=== PATIENT | male | born 1980 | race Caucasian/White ===

== ENCOUNTER 2020-09-12 17:08 | Emergency (ER) | payer OTHER ==
[~2020-09-12] VITALS: Ht 177 cm; Wt 117.0 kg
--- NOTE | 2020-09-12 17:21 | ED Psychosocial ---
General Chief Complaint: Psych/Social Disorder Stated Complaint: ANXIETY Source: patient Exam Limitations: no limitations History of Present Illness Date Seen by Provider: Sep 12, 2020 Time Seen by Provider: 17:19 Initial Comments To ER with reports of anxiety. He is from [place] works for the [employer]. He has been having a lot of stress secondary to his job. Today he had a syncopal episode and was caught by his coworker. He feels okay now but has a headache. He feels very anxious but he takes Zoloft 100 mg daily. He had a previous episode of near syncope with a very stressful situation. Timing/Duration: constant Severity: moderate Associated Symptoms: anxiety Allergies and Home Medications Allergies Coded Allergies: No Known Drug Allergies (Unverified , 09/12/20) Patient Home Medication List Home Medication List Reviewed: Yes Review of Systems Constitutional: see HPI EENTM: see HPI Respiratory: no symptoms reported Cardiovascular: no symptoms reported Genitourinary: no symptoms reported Musculoskeletal: no symptoms reported Skin: no symptoms reported Psychiatric/Neurological: Anxiety Past [id number]-Zrallg Hx Patient Social History Tobacco Use?: No Substance use?: No Alcohol Use?: No Pt feels they are or have been: No Immunizations Up To Date First/Initial COVID19 Vaccinat: 09/04/20 COVID19 Vaccine 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 Physical Exam Vital Signs - First Documented 09/12/20 17:11 Temp 36.4 Pulse 101 Resp 16 B/P (MAP) 155/86 (109) Pulse Ox 97 O2 Delivery Room Air Capillary Refill : Height, Weight, BMI Height: '" Weight: lbs. oz. kg; BMI Method: General Appearance: WD/WN, no apparent distress HEENT: PERRL/EOMI, normal ENT inspection Respiratory: no respiratory distress, no accessory muscle use Cardiovascular: no murmur, tachycardia Gastrointestinal: normal bowel sounds, non tender, soft Extremities: normal range of motion, non-tender Neurologic/Psychiatric: alert, normal mood/affect, oriented x 3 Appearance/Memory: appropriate appearance, appropriate insight Thoughts/Hallucinations: normal thought pattern, no apparent hallucination Skin: normal color, warm/dry Progress/Results/Core Measures Results/Orders Lab Results Laboratory Tests Test 09/12/20 17:15 Range/Units White Blood Count 9.4 4.3-11.0 10^3/uL Red Blood Count 4.73 4.30-5.52 10^6/uL Hemoglobin 14.5 13.3-17.7 g/dL Hematocrit 43 40-54 % Mean Corpuscular Volume 90 80-99 fL Mean Corpuscular Hemoglobin 31 25-34 pg Mean Corpuscular Hemoglobin Concent 34 32-36 g/dL Red Cell Distribution Width 11.7 10.0-14.5 % Platelet Count 262 130-400 10^3/uL Mean Platelet Volume 10.0 9.0-12.2 fL Immature Granulocyte % (Auto) 1 % Neutrophils (%) (Auto) 76 H 42-75 % Lymphocytes (%) (Auto) 16 12-44 % Monocytes (%) (Auto) 8 0-12 % Eosinophils (%) (Auto) 0 0-10 % Basophils (%) (Auto) 0 0-10 % Neutrophils # (Auto) 7.1 1.8-7.8 10^3/uL Lymphocytes # (Auto) 1.5 1.0-4.0 10^3/uL Monocytes # (Auto) 0.7 0.0-1.0 10^3/uL Eosinophils # (Auto) 0.0 0.0-0.3 10^3/uL Basophils # (Auto) 0.0 0.0-0.1 10^3/uL Immature Granulocyte # (Auto) 0.1 0.0-0.1 10^3/uL Sodium Level 142 135-145 MMOL/L Potassium Level 3.7 3.6-5.0 MMOL/L Chloride Level 103 98-107 MMOL/L Carbon Dioxide Level 23 21-32 MMOL/L Anion Gap 16 H 5-14 MMOL/L Blood Urea Nitrogen 11 7-18 MG/DL Creatinine 1.06 0.60-1.30 MG/DL Estimat Glomerular Filtration Rate 77 BUN/Creatinine Ratio 10 Glucose Level 156 H 70-105 MG/DL Calcium Level 9.4 8.5-10.1 MG/DL Corrected Calcium 9.2 8.5-10.1 MG/DL Total Bilirubin 0.6 0.1-1.0 MG/DL Aspartate Amino Transf (AST/SGOT) 19 5-34 U/L Alanine Aminotransferase (ALT/SGPT) 23 0-55 U/L Alkaline Phosphatase 70 40-136 U/L Total Protein 7.8 6.4-8.2 GM/DL Albumin 4.3 3.2-4.5 GM/DL My Orders Orders - JIMMY LALA APRN Alprazolam Tablet (Xanax Tablet) (09/12/20 17:30) Ketorolac Injection (Toradol Injection) (09/12/20 17:30) Cbc With Automated Diff (09/12/20 17:16) Comprehensive Metabolic Panel (09/12/20 17:16) Ekg Tracing (09/12/20 17:16) Chest 1 View, Ap/Pa Only (09/12/20 17:16) Ct Head Wo (09/12/20 17:18) Alprazolam Tablet (Xanax Tablet) (09/12/20 17:30) Acetaminophen Tablet (Tylenol Tablet) (09/12/20 18:30) Fentanyl Inj (Sublimaze Injection) (09/12/20 18:30) Medications Given in ED Current Medications Medications Dose Ordered Sig/Leon Route Start Time Stop Time Status Last Admin Dose Admin Alprazolam 0.25 mg ONCE ONCE PO 09/12/20 17:30 09/12/20 17:31 DC 09/12/20 17:35 0.25 MG Alprazolam 0.25 mg ONCE ONCE PO 09/12/20 17:30 09/12/20 17:31 DC 09/12/20 17:37 0.25 MG Ketorolac Tromethamine 15 mg ONCE ONCE IVP 09/12/20 17:30 09/12/20 17:31 DC 09/12/20 17:35 15 MG Vital Signs/I&O 09/12/20 17:11 Temp 36.4 Pulse 101 Resp 16 B/P (MAP) 155/86 (109) Pulse Ox 97 O2 Delivery Room Air Departure Communication (Admissions) 1820-feeling better. Still has a headache. Fentanyl and Tylenol ordered. He is calling a ride to come get him. Impression Primary Impression: Anxiety Disposition: 01 HOME, SELF-CARE Condition: Stable Departure-Patient Inst. Decision time for Depature: 17:20 Referrals: UNKNOWN (PCP/Family) Primary Care Physician Patient Instructions: Panic Disorder (DC) JIMMY LALA APRN Sep 12, 2020 17:21
[2020-09-12 17:25] LABS: BASOPHILS % (AUTO) 0 % (0-10); EOSINOPHILS % (AUTO) 0 % (0-10); HEMATOCRIT 43 % (40-54); HEMOGLOBIN 14.5 g/dL (13.3-17.7); LYMPHOCYTES # (AUTO) 1.5 10^3/uL (1.0-4.0); LYMPHOCYTES % (AUTO) 16 % (12-44); MEAN CORPUSCULAR HEMOGLOBIN 31 pg (25-34); MEAN CORPUSCULAR HGB CONC 34 g/dL (32-36); MEAN CORPUSCULAR VOLUME 90 fL (80-99); MONOCYTES # (AUTO) 0.7 10^3/uL (0.0-1.0); MONOCYTES % (AUTO) 8 % (0-12); NEUTROPHILS # (AUTO) 7.1 10^3/uL (1.8-7.8); NEUTROPHILS % (AUTO) 76 % (42-75); PLATELET COUNT 262 10^3/uL (130-400); WHITE BLOOD COUNT 9.4 10^3/uL (4.3-11.0)
[2020-09-12] MEDS ORDERED: ALPRAZolam 0.25 MG (XANAX) TAB PO ONE ×2 (17:30)
[2020-09-12] MEDS ORDERED: KETOROLAC 30 MG/ML VIAL IVP ONE (17:30)
[2020-09-12 17:42] LABS: ALBUMIN 4.3 GM/DL (3.2-4.5); POTASSIUM 3.7 MMOL/L (3.6-5.0)
[2020-09-12 17:43] LABS: CALCIUM 9.4 MG/DL (8.5-10.1)
[2020-09-12 17:45] LABS: TOTAL PROTEIN 7.8 GM/DL (6.4-8.2)
[2020-09-12 17:46] LABS: BILIRUBIN,TOTAL 0.6 MG/DL (0.1-1.0)
[2020-09-12 17:48] LABS: CREATININE SERUM 1.06 MG/DL (0.60-1.30)
--- NOTE | 2020-09-12 18:08 | Diagnostic Imaging Report ---
INDICATION: Syncopal episode. FINDINGS: Frontal view of the chest demonstrate the lungs to be clear. The heart, mediastinum, pulmonary vascularity, and visualized bony thorax are normal. IMPRESSION: Negative chest. Dictated by: Dictated on workstation # [id number]
--- NOTE | 2020-09-12 18:14 | Diagnostic Imaging Report ---
PROCEDURE: CT head without contrast. TECHNIQUE: Multiple contiguous axial images were obtained through the brain without the use of intravenous contrast. Auto Exposure Controls were utilized during the CT exam to meet ALARA standards for radiation dose reduction. INDICATION: Syncopal episode with no previous syncopal history. FINDINGS: Noncontrast CT scanning of the head demonstrates no mass effect, midline shift, hemorrhage or extraaxial fluid collections. Whiteside-white matter differentiation is normal. No atrophic changes are present. Ventricles, cortical sulci and basilar cisterns appear normal. The osseous structures are normal. Mastoid air cells are clear. IMPRESSION: Normal CT scanning of the head. Dictated by: Dictated on workstation # [id number]
[2020-09-12] MEDS ORDERED: ACETAMINOPHEN 500 MG TAB (TYLENOL) PO ONE (18:30)
[2020-09-12] MEDS ORDERED: fentaNYL INJ 100 MCG/2 ML AMP IVP ONE (18:30)
[2020-09-12 18:31] VITALS: BP 146/85
== END 2020-09-12 18:50 | disposition home or self-care (01) ==
LOC: ER 17:10
DX: F41.9 Anxiety disorder, unspecified (principal)
CPT/HCPCS: 36415; 70450; 71045; 80053; 85025; 93005